=== PATIENT | male | born 1940 | race Two or more races ===

== ENCOUNTER 2018-01-21 11:12 | Emergency (ER) | payer OTHER ==
[2018-01-21 11:43] LABS: WHITE BLOOD COUNT 14.6 10^3/ul (4.8-10.8)
[2018-01-21 11:43] LABS: ADD MAN DIFF? NO; BASOPHILS % 0.1 % (0.0-2.0); EOSINOPHILS % 0.1 % (0.0-7.0); HEMATOCRIT 37.6 % (42.0-52.0); HEMOGLOBIN 12.2 g/dl (14.0-18.0); LYMPHOCYTES # 1.3 10^3/ul (0.8-2.9); LYMPHOCYTES % 8.8 % (15.0-51.0); MEAN CORPUSCULAR HEMOGLOBIN 24.4 pg (29.0-33.0); MEAN CORPUSCULAR HGB CONC 32.4 g/dl (32.0-37.0); MEAN PLATELET VOLUME 10.3 fl (7.4-10.4); MONOCYTE # 0.7 10^3/ul (0.3-0.9); MONOCYTES % 4.5 % (0.0-11.0); NEUTROPHIL # 12.5 10^3/ul (1.6-7.5); NEUTROPHILS % 86.1 % (39.0-77.0); PLATELET COUNT 325 10^3/UL (140-415); RED BLOOD COUNT 5.01 10^6/ul (4.70-6.10); RED CELL DISTRIBUTION WIDTH 14.6 % (11.5-14.5)
[2018-01-21 11:59] LABS: ALANINE AMINOTRANSFERASE 37 IU/L (13-69); ALBUMIN 4.8 g/dl (3.3-4.9); ALBUMIN/GLOBULIN RATIO 1.17; ALKALINE PHOSPHATASE 93 IU/L (42-121); ANION GAP 21 (8-16); ASPARTATE AMINO TRANSFERASE 34 IU/L (15-46); BILIRUBIN,INDIRECT 0.2 mg/dl (0-1.1); BILIRUBIN,TOTAL 0.2 mg/dl (0.2-1.3); BLOOD UREA NITROGEN 15 mg/dl (7-20); CALCIUM 9.9 mg/dl (8.4-10.2); CARBON DIOXIDE 22 mmol/L (21-31); CHLORIDE 101 mmol/L (97-110); CREATININE 1.38 mg/dl (0.61-1.24); GLUCOSE 257 mg/dl (70-220); LIPASE 266 U/L (23-300); POTASSIUM 4.3 mmol/L (3.5-5.1); SODIUM 140 mmol/L (135-144); TOTAL PROTEIN 8.9 g/dl (6.1-8.1)
[2018-01-21] MEDS: ONDANSETRON 4 MG INJ IV (12:33)
[2018-01-21] MEDS: NA PHOSPHATE/BIPHOS 133 ML ENEMA PR (12:33)
[2018-01-21] MEDS: morphine 2 MG INJ IV (12:33)
[2018-01-21 12:48] LABS: URINE PH (Dip) POC 5.5 (5.0-8.5)
[2018-01-21 12:48] LABS: URINE BLOOD (Dip) POC Negative (NEGATIVE); URINE KETONES (Dip) POC Negative (NEGATIVE); URINE LEUKOCYTE EST (Dip) POC Negative (NEGATIVE); URINE NITRITE (Dip) POC Negative (NEGATIVE); URINE TOTAL PROTEIN POC Negative (NEGATIVE)
[2018-01-21 13:08] LABS: ADD UMIC NO; UR ASCORBIC ACID NEGATIVE (NEGATIVE); UR BILIRUBIN (Dip) NEGATIVE (NEGATIVE); UR BLOOD (Dip) NEGATIVE (NEGATIVE); UR CLARITY CLEAR (CLEAR); UR COLOR STRAW (YELLOW); UR GLUCOSE (Dip) 3+ mg/dL (NEGATIVE); UR KETONES (Dip) NEGATIVE (NEGATIVE); UR LEUKOCYTE ESTERASE (Dip) NEGATIVE Leu/ul (NEGATIVE); UR NITRITE (Dip) NEGATIVE (NEGATIVE); UR TOTAL PROTEIN (Dip) NEGATIVE (NEGATIVE); UR UROBILINOGEN (Dip) NEGATIVE (NEGATIVE)
[2018-01-21] MEDS ORDERED: NA PHOSPHATE/BIPHOS 133 ML ENEMA PR (14:00)
== END 2018-01-21 14:17 | disposition home or self-care (01) ==
LOC: E/R 11:12
DX: K59.00 Constipation, unspecified (principal); R33.9 Retention of urine, unspecified; D64.9 Anemia, unspecified; I10 Essential (primary) hypertension; E11.9 Type 2 diabetes mellitus without complications; Z79.84 Long term (current) use of oral hypoglycemic drugs
CPT/HCPCS: 36415; 74176; 80053; 81003; 83690; 85025; 96374; 96375; 99285-25

== ENCOUNTER 2018-10-24 17:07 | Inpatient (IN) | payer OTHER ==
[2018-10-24 20:16] LABS: ADD MAN DIFF? NO
[2018-10-24 20:19] LABS: BASOPHILS % 0.3 % (0.0-2.0); EOSINOPHILS # 0.1 10^3/ul (0.0-0.5); EOSINOPHILS % 0.7 % (0.0-7.0); HEMATOCRIT 36.2 % (42.0-52.0); LYMPHOCYTES # 0.9 10^3/ul (0.8-2.9); LYMPHOCYTES % 7.6 % (15.0-51.0); MEAN CORPUSCULAR HEMOGLOBIN 21.7 pg (29.0-33.0); MEAN CORPUSCULAR HGB CONC 30.4 g/dl (32.0-37.0); MEAN CORPUSCULAR VOLUME 71.5 fl (82.0-101.0); MEAN PLATELET VOLUME 9.7 fl (7.4-10.4); MONOCYTE # 1.2 10^3/ul (0.3-0.9); MONOCYTES % 10.2 % (0.0-11.0); NEUTROPHIL # 9.6 10^3/ul (1.6-7.5); NEUTROPHILS % 80.2 % (39.0-77.0); PLATELET COUNT 311 10^3/UL (140-415); RED BLOOD COUNT 5.06 10^6/ul (4.70-6.10); RED CELL DISTRIBUTION WIDTH 19.3 % (11.5-14.5)
[2018-10-24] MEDS: morphine 4 MG/ML VIAL IV (20:25)
[2018-10-24] MEDS: SOD CHLORIDE 0.9% 1,000 ML IV ×2 (20:25→22:57)
[2018-10-24] MEDS: ONDANSETRON 4 MG INJ IV ×2 (20:25→22:57)
[2018-10-24 20:35] LABS: INR 1.12; PARTIAL THROMBOPLASTIN TIME 27.3 Sec (23.0-35.0); PROTIME 14.5 Sec (11.9-14.9); PT RATIO 1.1
[2018-10-24 20:37] LABS: ALANINE AMINOTRANSFERASE 202 IU/L (13-69); ALBUMIN 4.3 g/dl (3.3-4.9); ALBUMIN/GLOBULIN RATIO 0.89; ALKALINE PHOSPHATASE 706 IU/L (42-121); AMYLASE 623 U/L (11-123); ANION GAP 17 (5-13); ASPARTATE AMINO TRANSFERASE 184 IU/L (15-46); BILIRUBIN,INDIRECT 0.4 mg/dl (0-1.1); BILIRUBIN,TOTAL 0.4 mg/dl (0.2-1.3); BLOOD UREA NITROGEN 17 mg/dl (7-20); CALCIUM 9.9 mg/dl (8.4-10.2); CARBON DIOXIDE 20 mmol/L (21-31); CHLORIDE 100 mmol/L (97-110); CREATININE 1.27 mg/dl (0.61-1.24); GLUCOSE 256 mg/dl (70-220); POTASSIUM 4.8 mmol/L (3.5-5.1); SODIUM 137 mmol/L (135-144); TOTAL PROTEIN 9.1 g/dl (6.1-8.1)
[2018-10-24 20:49] LABS: TROPONIN-I 0.027 ng/ml (0.000-0.120)
[2018-10-24 21:06] LABS: LIPASE 8434 U/L (23-300)
[2018-10-24] MEDS: SOD CHLORIDE 0.9% 100 ML (21:51)
[2018-10-24] MEDS: IODIXANOL LOCM 100 ML BTL (21:52)
[2018-10-24 22:55] LABS: HAAIG REFLEX REFLEX FILED
[2018-10-24] MEDS: HYDROmorphONE 1 MG/ML SYG IV (22:57)
[2018-10-24 23:07] LABS: ADD UMIC YES; UR ASCORBIC ACID NEGATIVE (NEGATIVE); UR BILIRUBIN (Dip) NEGATIVE (NEGATIVE); UR BLOOD (Dip) 1+ mg/dL (NEGATIVE); UR CLARITY CLEAR (CLEAR); UR COLOR STRAW (YELLOW); UR GLUCOSE (Dip) 3+ mg/dL (NEGATIVE); UR KETONES (Dip) NEGATIVE (NEGATIVE); UR LEUKOCYTE ESTERASE (Dip) NEGATIVE Leu/ul (NEGATIVE); UR NITRITE (Dip) NEGATIVE (NEGATIVE); UR RBC 2 /HPF (0-5); UR SPECIFIC GRAVITY (Dip) 1.036 (1.003-1.030); UR TOTAL PROTEIN (Dip) NEGATIVE (NEGATIVE); UR UROBILINOGEN (Dip) NEGATIVE (NEGATIVE); UR WBC 0 /HPF (0-5)
[2018-10-24 23:19] LABS: TRIGLYCERIDES 166 mg/dl (0-149)
[2018-10-24 23:50] LABS: HEPATITIS B SURFACE ANTIGEN NEGATIVE (NEGATIVE)
[2018-10-25] MEDS: SOD CHLORIDE 0.9% 1,000 ML IV ×2 (00:02→09:28)
[2018-10-25 00:08] LABS: HEPATITIS B CORE ANTIBODY NEGATIVE (NEGATIVE); HEPATITIS C VIRAL ANTIBODY NEGATIVE (NEGATIVE)
[2018-10-25 00:23] LABS: ADD MAN DIFF? NO
[2018-10-25 00:24] LABS: WHITE BLOOD COUNT 11.9 10^3/ul (4.8-10.8)
[2018-10-25 00:24] LABS: BASOPHILS % 0.3 % (0.0-2.0); EOSINOPHILS # 0.2 10^3/ul (0.0-0.5); EOSINOPHILS % 1.3 % (0.0-7.0); HEMATOCRIT 33.1 % (42.0-52.0); HEMOGLOBIN 9.9 g/dl (14.0-18.0); LYMPHOCYTES # 1.8 10^3/ul (0.8-2.9); LYMPHOCYTES % 14.7 % (15.0-51.0); MEAN CORPUSCULAR HEMOGLOBIN 21.7 pg (29.0-33.0); MEAN CORPUSCULAR HGB CONC 29.9 g/dl (32.0-37.0); MEAN CORPUSCULAR VOLUME 72.6 fl (82.0-101.0); MONOCYTE # 1.3 10^3/ul (0.3-0.9); NEUTROPHIL # 8.5 10^3/ul (1.6-7.5); NEUTROPHILS % 71.7 % (39.0-77.0); PLATELET COUNT 277 10^3/UL (140-415); RED BLOOD COUNT 4.56 10^6/ul (4.70-6.10); RED CELL DISTRIBUTION WIDTH 19.3 % (11.5-14.5)
[2018-10-25] MEDS ORDERED: NACL 0.9% 3 ML SYG IV (00:30)
[2018-10-25] MEDS ORDERED: ACETAMINOPHEN 325 MG TAB PO (00:30)
[2018-10-25] MEDS ORDERED: HEPARIN 1000 UNITS/ML 10 ML INJ IV (00:30)
[2018-10-25] MEDS ORDERED: ONDANSETRON 4 MG INJ IV (00:30)
[2018-10-25] MEDS ORDERED: ENOXAPARIN 80 MG/0.8 ML SYG SC (00:30)
[2018-10-25 00:44] LABS: INR 1.17; PARTIAL THROMBOPLASTIN TIME 28.5 Sec (23.0-35.0); PT RATIO 1.2
[2018-10-25] MEDS: HYDROmorphONE 0.5 MG/0.5 ML SYG IV ×3 (00:49→17:06)
[2018-10-25] MEDS: HEPARIN 1000 UNITS/ML 10 ML INJ IV ×2 (00:50→02:03)
[2018-10-25] MEDS: HEPARIN 25000 UNITS/250 ML 250 ML IV ×2 (02:04→10:37)
[2018-10-25] MEDS: IOHEXOL 100 ML (09:16)
[2018-10-25] MEDS: SOD CHLORIDE 0.9% 100 ML (09:16)
[2018-10-25] MEDS: FAMOTIDINE 20 MG TAB PO (09:27)
[2018-10-25] MEDS: AMLODIPINE 10 MG TAB PO (09:27)
[2018-10-25 09:50] LABS: PARTIAL THROMBOPLASTIN TIME 110.8 Sec (23.0-35.0)
[2018-10-25 10:04] LABS: CARCINOEMBRYONIC ANTIGEN 11.7 ng/ml (0.0-5.0)
[2018-10-25 10:08] LABS: CANCER ANTIGEN 19-9 51.1 U/ml (0.0-37.0)
[2018-10-25 11:29] LABS: ALPHA FETOPROTEIN 3.43 IU/L (0.00-7.21)
[2018-10-25] MEDS ORDERED: GLUCAGON 1 MG INJ IM (14:00)
[2018-10-25] MEDS ORDERED: GLUCOSE GEL 15 GRAM TUBE PO ×2 (14:00)
[2018-10-25] MEDS ORDERED: GLUCOSE GEL 15 GRAM TUBE BUCCAL (14:00)
[2018-10-25] MEDS ORDERED: DEXTROSE 50% 50 ML SYRINGE IV ×2 (14:00)
[2018-10-25] MEDS: INSULIN ASPART [NOVOLOG] 3 ML PEN SC ×3 (17:37→20:38)
[2018-10-25 17:43] LABS: PARTIAL THROMBOPLASTIN TIME 62.5 Sec (23.0-35.0)
[2018-10-25] MEDS: INSULIN GLARGINE [LANTus] (100 UNITS/ML) SYG SC (20:37)
[2018-10-25] MEDS: TAMSULOSIN (SR) 0.4 MG CAP PO (20:38)
[2018-10-26] MEDS: HYDROmorphONE 0.5 MG/0.5 ML SYG IV ×3 (00:07→21:05)
[2018-10-26 01:07] LABS: PARTIAL THROMBOPLASTIN TIME 63.8 Sec (23.0-35.0)
[2018-10-26] MEDS: HEPARIN 25000 UNITS/250 ML 250 ML IV ×2 (01:35→22:27)
[2018-10-26] MEDS ORDERED: ACCU-CHEK XX (02:00)
[2018-10-26 06:00] LABS: ADD MAN DIFF? NO
[2018-10-26 06:03] LABS: BASOPHIL # 0.1 10^3/ul (0.0-0.1); BASOPHILS % 0.4 % (0.0-2.0); EOSINOPHILS # 0.2 10^3/ul (0.0-0.5); EOSINOPHILS % 1.6 % (0.0-7.0); HEMATOCRIT 31.1 % (42.0-52.0); HEMOGLOBIN 9.8 g/dl (14.0-18.0); LYMPHOCYTES # 1.5 10^3/ul (0.8-2.9); LYMPHOCYTES % 12.2 % (15.0-51.0); MEAN CORPUSCULAR HEMOGLOBIN 22.2 pg (29.0-33.0); MEAN CORPUSCULAR HGB CONC 31.5 g/dl (32.0-37.0); MEAN CORPUSCULAR VOLUME 70.4 fl (82.0-101.0); MEAN PLATELET VOLUME 9.9 fl (7.4-10.4); MONOCYTE # 1.4 10^3/ul (0.3-0.9); NEUTROPHIL # 9.2 10^3/ul (1.6-7.5); NEUTROPHILS % 74.2 % (39.0-77.0); PLATELET COUNT 300 10^3/UL (140-415); RED BLOOD COUNT 4.42 10^6/ul (4.70-6.10); RED CELL DISTRIBUTION WIDTH 19.1 % (11.5-14.5)
[2018-10-26 06:03] LABS: WHITE BLOOD COUNT 12.3 10^3/ul (4.8-10.8)
[2018-10-26 06:42] LABS: ANION GAP 7 (5-13); BLOOD UREA NITROGEN 9 mg/dl (7-20); CARBON DIOXIDE 21 mmol/L (21-31); CHLORIDE 106 mmol/L (97-110); CREATININE 1.01 mg/dl (0.61-1.24); GLUCOSE 131 mg/dl (70-220); POTASSIUM 4.1 mmol/L (3.5-5.1); SODIUM 134 mmol/L (135-144)
[2018-10-26 06:43] LABS: ALANINE AMINOTRANSFERASE 168 IU/L (13-69); ALBUMIN 3.5 g/dl (3.3-4.9); ALBUMIN/GLOBULIN RATIO 0.79; ALKALINE PHOSPHATASE 482 IU/L (42-121); ASPARTATE AMINO TRANSFERASE 143 IU/L (15-46); BILIRUBIN,INDIRECT 0.4 mg/dl (0-1.1); BILIRUBIN,TOTAL 0.4 mg/dl (0.2-1.3); CALCIUM 8.9 mg/dl (8.4-10.2); CHOL/HDL RATIO 6.4 RATIO; CHOLESTEROL 200 mg/dl (100-200); HDL CHOLESTEROL 31 mg/dl (31-75); LDL CHOLESTEROL,CALCULATED 136 mg/dl; TOTAL PROTEIN 7.9 g/dl (6.1-8.1); TRIGLYCERIDES 163 mg/dl (0-149)
[2018-10-26 06:48] LABS: AMYLASE 299 U/L (11-123)
[2018-10-26 07:05] LABS: LIPASE 2252 U/L (23-300)
[2018-10-26] MEDS: INSULIN ASPART [NOVOLOG] 3 ML PEN SC ×7 (07:55→21:03)
[2018-10-26] MEDS: AMLODIPINE 10 MG TAB PO (08:29)
[2018-10-26] MEDS: FAMOTIDINE 20 MG TAB PO (08:29)
[2018-10-26 10:18] LABS: PARTIAL THROMBOPLASTIN TIME 81.3 Sec (23.0-35.0)
[2018-10-26] MEDS: LIDOCAINE 1% (MPF) 5 ML VIAL (15:15)
[2018-10-26] MEDS ORDERED: FENTAnyl 50 MCG/ML VIAL IV (16:00)
[2018-10-26] MEDS ORDERED: MEPERIDINE 25 MG INJ IV (16:00)
[2018-10-26] MEDS ORDERED: ONDANSETRON 4 MG INJ IV (16:00)
[2018-10-26] MEDS ORDERED: DIPHENHYDRAMINE 50 MG INJ IV (16:00)
[2018-10-26 17:39] LABS: PARTIAL THROMBOPLASTIN TIME 33.7 Sec (23.0-35.0)
[2018-10-26 18:02] LABS: IRON 36 ug/dl (35-150)
[2018-10-26 18:11] LABS: % IRON SATURATION 11 % SAT (22-52); TOTAL IRON BINDING CAPACITY 341 ug/dl (241-421)
[2018-10-26] MEDS: TAMSULOSIN (SR) 0.4 MG CAP PO (20:59)
[2018-10-26] MEDS: INSULIN GLARGINE [LANTus] (100 UNITS/ML) SYG SC (21:03)
[2018-10-26 23:02] LABS: PARTIAL THROMBOPLASTIN TIME 71.2 Sec (23.0-35.0)
[2018-10-27] MEDS: HYDROmorphONE 0.5 MG/0.5 ML SYG IV ×3 (04:08→14:10)
[2018-10-27 05:57] LABS: ADD MAN DIFF? NO
[2018-10-27 06:01] LABS: WHITE BLOOD COUNT 11.4 10^3/ul (4.8-10.8)
[2018-10-27 06:01] LABS: BASOPHILS % 0.3 % (0.0-2.0); EOSINOPHILS # 0.2 10^3/ul (0.0-0.5); EOSINOPHILS % 1.6 % (0.0-7.0); HEMOGLOBIN 10.2 g/dl (14.0-18.0); LYMPHOCYTES # 1.1 10^3/ul (0.8-2.9); LYMPHOCYTES % 9.8 % (15.0-51.0); MEAN CORPUSCULAR HEMOGLOBIN 21.8 pg (29.0-33.0); MEAN CORPUSCULAR HGB CONC 30.9 g/dl (32.0-37.0); MEAN CORPUSCULAR VOLUME 70.5 fl (82.0-101.0); MEAN PLATELET VOLUME 10.4 fl (7.4-10.4); MONOCYTE # 1.2 10^3/ul (0.3-0.9); MONOCYTES % 10.6 % (0.0-11.0); NEUTROPHIL # 8.8 10^3/ul (1.6-7.5); PLATELET COUNT 328 10^3/UL (140-415); RED BLOOD COUNT 4.68 10^6/ul (4.70-6.10); RED CELL DISTRIBUTION WIDTH 18.9 % (11.5-14.5)
[2018-10-27 06:34] LABS: ANION GAP 12 (5-13); BLOOD UREA NITROGEN 12 mg/dl (7-20); CALCIUM 9.2 mg/dl (8.4-10.2); CARBON DIOXIDE 22 mmol/L (21-31); CHLORIDE 101 mmol/L (97-110); GLUCOSE 221 mg/dl (70-220); POTASSIUM 3.8 mmol/L (3.5-5.1); SODIUM 135 mmol/L (135-144)
[2018-10-27 06:48] LABS: PARTIAL THROMBOPLASTIN TIME 83.9 Sec (23.0-35.0)
[2018-10-27] MEDS: AMLODIPINE 10 MG TAB PO (09:10)
[2018-10-27] MEDS: FAMOTIDINE 20 MG TAB PO (09:10)
[2018-10-27] MEDS: INSULIN ASPART [NOVOLOG] 3 ML PEN SC ×7 (09:14→21:00)
[2018-10-27 10:12] LABS: ALPHA 1 ANTITRYPSIN 273 mg/dL (83-199)
[2018-10-27 13:16] LABS: ANA SCREEN NEGATIVE (NEGATIVE); MITOCHONDRIAL TB NEGATIVE (NEGATIVE); SMOOTH MUSCLE AB SCREEN NEGATIVE (NEGATIVE)
[2018-10-27] MEDS: INSULIN GLARGINE [LANTus] (100 UNITS/ML) SYG SC (21:10)
[2018-10-27] MEDS: TAMSULOSIN (SR) 0.4 MG CAP PO (21:12)
[2018-10-27] MEDS: APIXABAN 5 MG TABLET PO (21:12)
[2018-10-28] MEDS: HYDROmorphONE 0.5 MG/0.5 ML SYG IV ×4 (01:01→23:00)
[2018-10-28 06:04] LABS: ADD MAN DIFF? NO
[2018-10-28 06:15] LABS: BASOPHILS % 0.2 % (0.0-2.0); EOSINOPHILS # 0.3 10^3/ul (0.0-0.5); EOSINOPHILS % 2.4 % (0.0-7.0); HEMATOCRIT 33.9 % (42.0-52.0); HEMOGLOBIN 10.6 g/dl (14.0-18.0); LYMPHOCYTES # 1.1 10^3/ul (0.8-2.9); LYMPHOCYTES % 10.1 % (15.0-51.0); MEAN CORPUSCULAR HEMOGLOBIN 21.8 pg (29.0-33.0); MEAN CORPUSCULAR HGB CONC 31.3 g/dl (32.0-37.0); MEAN CORPUSCULAR VOLUME 69.6 fl (82.0-101.0); MEAN PLATELET VOLUME 9.8 fl (7.4-10.4); MONOCYTE # 1.1 10^3/ul (0.3-0.9); MONOCYTES % 10.2 % (0.0-11.0); NEUTROPHIL # 8.1 10^3/ul (1.6-7.5); NEUTROPHILS % 76.3 % (39.0-77.0); PLATELET COUNT 269 10^3/UL (140-415); RED BLOOD COUNT 4.87 10^6/ul (4.70-6.10); RED CELL DISTRIBUTION WIDTH 19.2 % (11.5-14.5)
[2018-10-28 06:15] LABS: WHITE BLOOD COUNT 10.6 10^3/ul (4.8-10.8)
[2018-10-28 06:18] LABS: ANION GAP 13 (5-13); BLOOD UREA NITROGEN 10 mg/dl (7-20); CALCIUM 9.1 mg/dl (8.4-10.2); CARBON DIOXIDE 23 mmol/L (21-31); CHLORIDE 98 mmol/L (97-110); CREATININE 0.93 mg/dl (0.61-1.24); GLUCOSE 145 mg/dl (70-220); POTASSIUM 3.6 mmol/L (3.5-5.1); SODIUM 134 mmol/L (135-144)
[2018-10-28 06:24] LABS: PARTIAL THROMBOPLASTIN TIME 30.4 Sec (23.0-35.0)
[2018-10-28 06:58] LABS: AMYLASE 270 U/L (11-123)
[2018-10-28] MEDS: INSULIN ASPART [NOVOLOG] 3 ML PEN SC ×7 (08:07→20:47)
[2018-10-28 08:12] LABS: LIPASE 2324 U/L (23-300)
[2018-10-28 08:34] LABS: HEMOGLOBIN A1C 7.7 % (0-5.9)
[2018-10-28] MEDS ORDERED: APIXABAN 5 MG TABLET PO (09:00)
[2018-10-28] MEDS: POLYETHYLENE GLYCOL 17 GM PACKET PO ×2 (09:03→20:50)
[2018-10-28] MEDS: FAMOTIDINE 20 MG TAB PO (09:03)
[2018-10-28] MEDS: AMLODIPINE 10 MG TAB PO (09:03)
[2018-10-28] MEDS: APIXABAN 5 MG TABLET PO ×2 (09:04→20:50)
[2018-10-28] MEDS: BISACODYL (EC) 5 MG TAB PO (17:04)
[2018-10-28] MEDS: FENTAnyl 50 MCG/ML VIAL (20:41)
[2018-10-28] MEDS: PROPOFOL 20 ML ×2 (20:42)
[2018-10-28] MEDS: MIDAZOLAM 1 MG/ML 2 ML INJ (20:42)
[2018-10-28] MEDS: LIDOCAINE 2% (SDV) 5 ML INJ (20:43)
[2018-10-28] MEDS: TAMSULOSIN (SR) 0.4 MG CAP PO (20:50)
[2018-10-28] MEDS: INSULIN GLARGINE [LANTus] (100 UNITS/ML) SYG SC (21:01)
[2018-10-29] MEDS: LORAZEPAM 0.5 MG TAB PO (00:01)
[2018-10-29] MEDS: HYDROmorphONE 0.5 MG/0.5 ML SYG IV ×2 (03:54→22:45)
[2018-10-29] MEDS: PANTOPRAZOLE 40 MG INJ IV (05:48)
[2018-10-29] MEDS: POLYETHYLENE GLYCOL 17 GM PACKET PO ×2 (08:20→20:22)
[2018-10-29] MEDS: AMLODIPINE 10 MG TAB PO (08:20)
[2018-10-29] MEDS: APIXABAN 5 MG TABLET PO ×2 (08:20→20:13)
[2018-10-29] MEDS: INSULIN ASPART [NOVOLOG] 3 ML PEN SC ×7 (08:33→20:12)
[2018-10-29] MEDS: TAMSULOSIN (SR) 0.4 MG CAP PO (20:14)
[2018-10-29] MEDS: INSULIN GLARGINE [LANTus] (100 UNITS/ML) SYG SC (20:22)
[2018-10-30] MEDS: PANTOPRAZOLE (EC) 40 MG TAB PO (05:12)
[2018-10-30] MEDS: AMLODIPINE 10 MG TAB PO (08:05)
[2018-10-30] MEDS: APIXABAN 5 MG TABLET PO ×2 (08:05→21:26)
[2018-10-30] MEDS: POLYETHYLENE GLYCOL 17 GM PACKET PO ×2 (08:05→21:26)
[2018-10-30] MEDS: INSULIN ASPART [NOVOLOG] 3 ML PEN SC ×7 (08:13→21:00)
[2018-10-30] MEDS: HYDROmorphONE 0.5 MG/0.5 ML SYG IV ×3 (13:50→23:43)
[2018-10-30] MEDS: TAMSULOSIN (SR) 0.4 MG CAP PO (21:26)
[2018-10-30] MEDS: INSULIN GLARGINE [LANTus] (100 UNITS/ML) SYG SC (21:37)
[2018-10-31] MEDS: HYDROmorphONE 0.5 MG/0.5 ML SYG IV ×5 (06:03→22:01)
[2018-10-31] MEDS: PANTOPRAZOLE (EC) 40 MG TAB PO (06:03)
[2018-10-31] MEDS: INSULIN ASPART [NOVOLOG] 3 ML PEN SC ×7 (08:32→20:21)
[2018-10-31] MEDS: APIXABAN 5 MG TABLET PO ×2 (09:53→20:20)
[2018-10-31] MEDS: POLYETHYLENE GLYCOL 17 GM PACKET PO ×2 (09:53→20:20)
[2018-10-31] MEDS: AMLODIPINE 10 MG TAB PO (09:53)
[2018-10-31] MEDS: TAMSULOSIN (SR) 0.4 MG CAP PO (20:20)
[2018-10-31] MEDS: INSULIN GLARGINE [LANTus] (100 UNITS/ML) SYG SC (20:29)
[2018-11-01] MEDS: HYDROmorphONE 0.5 MG/0.5 ML SYG IV ×6 (02:25→23:45)
[2018-11-01] MEDS: PANTOPRAZOLE (EC) 40 MG TAB PO (06:09)
[2018-11-01] MEDS: INSULIN ASPART [NOVOLOG] 3 ML PEN SC ×7 (08:31→20:39)
[2018-11-01] MEDS: APIXABAN 5 MG TABLET PO ×2 (09:59→20:28)
[2018-11-01] MEDS: AMLODIPINE 10 MG TAB PO (09:59)
[2018-11-01] MEDS: POLYETHYLENE GLYCOL 17 GM PACKET PO ×2 (09:59→20:28)
[2018-11-01] MEDS: DOCUSATE SODIUM 100 MG CAP PO (18:05)
[2018-11-01] MEDS: BISACODYL (EC) 5 MG TAB PO (18:05)
[2018-11-01] MEDS ORDERED: NA PHOSPHATE/BIPHOS 133 ML ENEMA PR (20:00)
[2018-11-01] MEDS: TAMSULOSIN (SR) 0.4 MG CAP PO (20:28)
[2018-11-01] MEDS: INSULIN GLARGINE [LANTus] (100 UNITS/ML) SYG SC (20:38)
[2018-11-02] MEDS: HYDROmorphONE 0.5 MG/0.5 ML SYG IV ×3 (04:23→14:54)
[2018-11-02] MEDS: PANTOPRAZOLE (EC) 40 MG TAB PO (05:46)
[2018-11-02] MEDS: APIXABAN 5 MG TABLET PO (08:31)
[2018-11-02] MEDS: AMLODIPINE 10 MG TAB PO (08:31)
[2018-11-02] MEDS: INSULIN ASPART [NOVOLOG] 3 ML PEN SC ×4 (08:55→13:36)
[2018-11-02] MEDS: POLYETHYLENE GLYCOL 17 GM PACKET PO (09:07)
[2018-11-02] MEDS: LORAZEPAM 0.5 MG TAB PO (15:19)
[2018-11-03] MEDS ORDERED: APIXABAN 5 MG TABLET PO (21:00)
== END 2018-11-02 16:30 | disposition hospice, home (50) | DRG 435 ==
LOC: TEL 22:54 → E/R 17:07
PROC: 0FD13ZX Extraction of Right Lobe Liver, Percutaneous Approach, Diagnostic (ICD-10-PCS; principal; 2018-10-26)
DX: C25.9 Malignant neoplasm of pancreas, unspecified (principal); I26.99 Other pulmonary embolism without acute cor pulmonale; C78.7 Secondary malignant neoplasm of liver and intrahepatic bile duct; N17.9 Acute kidney failure, unspecified; D68.32 Hemorrhagic disorder due to extrinsic circulating anticoagulants; D64.9 Anemia, unspecified; I10 Essential (primary) hypertension; E11.9 Type 2 diabetes mellitus without complications; E78.5 Hyperlipidemia, unspecified; R04.0 Epistaxis; T45.515A Adverse effect of anticoagulants, initial encounter; K59.00 Constipation, unspecified
CPT/HCPCS: 71045; 71275; 74177; 74181; 76705; 77012; 80048; 80053; 80061; 81001; 82103; 82105; 82150; 82378; 82728; 82962; 83036; 83540; 83690; 83735; 84443; 84478; 84484; 85025; 85610; 85730; 86038; 86255; 86301; 86704; 86709; 86803; 87086; 87340; 88307; 88313; 88341; 88342; 93005; 96374; 96375; 97162; 99291-25